=== PATIENT | female | born 1975 | race Caucasian/White ===

== ENCOUNTER 2017-02-02 01:00 | Emergency (ER) | payer MEDICAID ==
[2017-02-02] MEDS ORDERED: KETOROLAC 30 MG/ML VIAL IVP ONE (01:06)
--- NOTE | 2017-02-02 01:11 | Emergency Department Record ---
History of Present Illness - General Chief Complaint: Abdominal Pain Stated Complaint: ABDOMINAL PAIN Time Seen by Provider: 02/02/17 01:01 Source: Patient Mode of Arrival: Ambulatory Limitations: No limitations - History of Present Illness Initial Comments: 41 yo female presents to ED for worsening RLQ abdominal pain and difficulty urinating. Patient reports that she believes that she may have a UTI, but could now wait to see her PCP due to pain symptoms. Patient denies fevers, chills, nausea, vomiting, or change in stools. Patient denies previous abdominal surgery, and denies health problems at her baseline. MD Complaint: Abdominal pain Onset/Timin -: Days(s) Location: RLQ Radiation: None Migration to: No migration Severity: Severe Quality: Sharp, Stabbing Consistency: Constant Improves With: Nothing Worsens With: Nothing Associated Symptoms: Denies other symptoms - Related Data Patient : No Previous Rx's Medication Instructions Recorded Hydrocodone/Acetaminophen [[place] 1 tab PO Q6H PRN #10 tab 02/02/17 5mg/325mg] Tamsulosin HCl [Flomax] 0.4 mg PO DAILY #15 cap.er.24h 02/02/17 Allergies Allergy/AdvReac Type Severity Reaction Status Date / Time latex Allergy RASH Unverified 11/06/16 16:07 Review of Systems Constitutional: Denies: Chills, Fever, Malaise, Night sweats Eyes: Denies: Eye discharge, Eye pain ENT: Denies: Congestion, Ear pain, Epistaxis Respiratory: Denies: Cough, Dyspnea Cardiovascular: Denies: Chest pain, Dyspnea on exertion Endocrine: Denies: Fatigue, Heat or cold intolerance Gastrointestinal: Reports: Abdominal pain. Denies: Constipation, Nausea, Vomiting Genitourinary: Reports: Dysuria. Denies: Incontinence, Retention Musculoskeletal: Denies: Arthralgia, Back pain, Gout, Joint swelling Skin: Denies: Bruising, Change in color Neurological: Denies: Abnormal gait, Confusion, Headache, Seizure Psychiatric: Denies: Anxiety Hematological/Lymphatic: Denies: Anemia, Blood Clots Physical Exam - General General Appearance: Alert, Oriented x3, Cooperative, Moderate distress Limitations: No limitations - Head Head exam: Atraumatic, Normocephalic, Normal inspection Head exam detail: negative: Abrasion, Contusion, Carlin's sign, General tenderness, Hematoma, Laceration - Eye Eye exam: Normal appearance. negative: Conjunctival injection, Periorbital swelling, Periorbital tenderness, Scleral icterus - ENT Ear exam: negative: Auricular hematoma, Auricular trauma Nasal Exam: negative: Active bleeding, Discharge, Dried blood, Foreign body Mouth exam: negative: Drooling, Laceration, Muffled voice, Tongue elevation - Neck Neck exam: Normal inspection. negative: Meningismus, Tenderness - Respiratory Respiratory exam: Normal lung sounds bilaterally. negative: Rales, Respiratory distress, Rhonchi, Stridor - Cardiovascular Cardiovascular Exam: Regular rate, Normal rhythm, Normal heart sounds - GI/Abdominal GI/Abdominal exam: Soft, Tenderness, Other (Mild TTP to the RLQ, no rebound, guarding, or peritoneal signs on examination.). negative: Rebound, Rigid - Rectal Rectal exam: Deferred - exam: Deferred - Extremities Extremities exam: Normal inspection. negative: Calf tenderness, Pedal edema, Tenderness - Back Back exam: Denies: CVA tenderness (R), CVA tenderness (L) - Neurological Neurological exam: Alert, Normal gait, Oriented X3 - Psychiatric Psychiatric exam: Normal affect, Normal mood - Skin Skin exam: Normal color. negative: Abrasion Type of lesion: negative: abrasion Course - Reevaluation(s) Reevaluation #1: 02/02/17 01:37 Labs reviewed, WBC 17, labs are otherwise grossly unremarkable for an acute process. Patient has been unable to urinate, bladder scan demonstrates only 30 mL on examination. Patient is in CT currently. Reevaluation #2: 02/02/17 01:49 Patient is back from CT imaging, reports that her pain symptoms are greatly improved following Toradol. Patient will attempt to provide UA sample to exclude infection in 10-15 minutes. Reevaluation #3: 02/02/17 02:03 CT Abdomen and Pelvis: 3 mm distal obstructing calculus with moderate right hydronephrosis normal appendix. Reevaluation #4: 02/02/17 02:32 UA reviewed and appears negative for infection. Patient's pain symptoms appears controlled at this time, and the patient appears stable for outpatient follow-up with Dr. Corley in 1-3 days. Will initiate therapy with Flomax and [place] for her pain symptoms as well. Medical Decision Making - Lab Data Result diagrams: 02/02/17 01:12 02/02/17 01:12 Disposition Disposition: Discharge Clinical Impression: Kidney stone on right side Disposition: Home, Self-Care Condition: (2) Stable Instructions: Kidney Stones (ED) Additional Instructions: Return to ED if your symptoms worsen or if you have any concerns. Flomax and [place] as directed. Follow-up with Dr. Corley in 1-3 days as directed. Prescriptions: Hydrocodone/Acetaminophen [[place] 5mg/325mg] 1 tab PO Q6H PRN #10 tab PRN Reason: Pain - General Tamsulosin HCl [Flomax] 0.4 mg PO DAILY #15 cap.er.24h Referrals: ALVINO CORLEY M.D. [MEDICAL DOCTOR] - [facility] [Provider Group] Forms: Patient Portal Access Time of Disposition: 02:34 Quality - Quality Measures Quality Measures: N/A - Blood Pressure Screening Does Patient Have Any of the Following: No Blood Pressure Classification: Hypertensive Reading Systolic Measurement: 158 Diastolic Measurement: 127 Screening for High Blood Pressure: < First Hypertensive BP, F/U Documented > [ G8950] First Hypertensive Follow-up Interventions: Referral to alternative/primary care provider.
[2017-02-02] MEDS ORDERED: 0.9 % SODIUM CHLORIDE 1000ML 1,000 ML IV SCH (01:15)
[2017-02-02 01:17] LABS: BASO % 0.2 % (0-6); EOS % 1.1 % (0-6); GRAN % 51.5 % (47-80); HEMATOCRIT 45.6 % (35.0-47.0); HEMOGLOBIN 15.7 gm/dl (11.6-16.0); LYMPH % 38.6 % (16-45); MEAN CELL VOLUME 93.4 fl (81-97); MEAN CORPUSCULAR HEMOGLOBIN 32.2 pg (27-33); MEAN CORPUSCULAR HGB CONC 34.4 g/dl (32-36); MEAN PLATELET VOLUME 8.7 fl (7.4-10.4); MONO % 8.6 % (0-9); PLATELET COUNT 343 K/uL (130-400); RED BLOOD COUNT 4.88 M/uL (3.80-5.40); RED CELL DISTRIBUTION WIDTH 13.4 % (11.5-14.5)
[2017-02-02 01:28] LABS: BLOOD UREA NITROGEN 11 mg/dL (6-20); CREATININE 0.8 mg/dL (0.5-0.9); EST GLOMERULAR FILTRATION RATE > 60 mL/min; TOTAL PROTEIN 7.1 g/dL (6.6-8.7)
[2017-02-02 01:30] LABS: GLUCOSE,RANDOM 131 mg/dL (74-109)
[2017-02-02 01:33] LABS: ALB/GLOB RATIO 1.4 (1.1-1.8); ALBUMIN 4.1 g/dL (4.0-5.0); ALKALINE PHOSPHATASE 78 U/L (35-104); ALT/SGPT 10 U/L (<33); AST/SGOT 10 U/L (10.0-35.0); LIPASE 39 U/L (13-60)
[2017-02-02] MEDS ORDERED: ONDANSETRON HCL IV 4 MG/2 ML VIAL IVP ONE (01:53)
[2017-02-02] MEDS ORDERED: MORPHINE SULFATE 5 MG/ML PFS IVP ONE (01:53)
[2017-02-02 02:26] LABS: URINE APPEARANCE CLEAR; URINE BILIRUBIN NEGATIVE (NEGATIVE); URINE BLOOD SMALL (NEGATIVE); URINE COLOR YELLOW; URINE GLUCOSE (UA) NEGATIVE (NEGATIVE); URINE KETONE NEGATIVE (NEGATIVE); URINE LEUKOCYTE ESTERASE NEGATIVE (NEGATIVE); URINE NITRITE NEGATIVE (NEGATIVE); URINE PROTEIN NEGATIVE (NEGATIVE); URINE UROBILINOGEN 0.2 E.U./dL (0.20 - 1.00)
[2017-02-02 02:28] LABS: URINE WBC 0 - 2 (0-2/hpf)
[2017-02-02 02:29] LABS: URINE BACTERIA NONE SEEN
[2017-02-02] MEDS ORDERED: TAMSULOSIN HCL 0.4 MG CAP.ER.24H PO ONE (02:39)
[2017-02-02] MEDS ORDERED: HYDROCODONE/APAP 5/325MG TABLET PO ONE (02:39)
--- NOTE | 2017-02-02 14:29 | CT SCAN REPORT ---
EXAM: EMERGENCY CT OF THE ABDOMEN AND PELVIS WITH CONTRAST HISTORY: RIGHT LOWER QUADRANT PAIN AND FLANK PAIN FOR FOUR DAYS. TECHNIQUE: Axial CT scan of the abdomen and pelvis was obtained following the intravenous administration of 90 ml of Omnipaque 300 as the IV contrast. No oral contrast was utilized at the referring physician's request. A preliminary report was provided by [facility]. Comparison: CT of the abdomen and pelvis 03/01/10. FINDINGS: No calcified gallstones are seen within the gallbladder. No definite hepatic, splenic, adrenal, pancreatic, or right renal mass identified. There is a single low attenuation mass in the left kidney measuring about 1.4 cm in size. This was not well seen on the prior CT of 03/01/10 performed without IV contrast at that time, but has a CT density of 15 and is consistent with a renal cyst. There is no hydronephrosis or hydroureter on the left, but there is moderate hydronephrosis and mild hydroureter on the right with the dilated right ureter followed down into the pelvis where it becomes contiguous with a small calcification approximately 3 mm in size consistent with a distal right ureteral calculus a short distance from the right UVJ itself causing a component of obstruction. No actual bladder calculus evident. Mild diverticulosis seen in the left side of the colon fairly diffusely, but no diverticulitis evident. The appendix is visualized and appears of normal caliber with no appendicitis evident. No free intraperitoneal air or free intraperitoneal fluid evident. There is a very small periumbilical anterior abdominal wall hernia containing adipose tissue, but no bowel. There is probably a small, approximately 1.8 cm right ovarian cyst present. Somewhat anteverted uterus as before. IMPRESSION: 1. APPEARANCE CONSISTENT WITH AN APPROXIMATELY 3 MM DISTAL RIGHT URETERAL CALCULUS CAUSING A COMPONENT OF OBSTRUCTION ON THE RIGHT. THIS CALCULUS IS A SHORT DISTANCE FROM THE RIGHT UVJ ITSELF. 2. APPROXIMATELY 1.4 CM LEFT RENAL CYST. 3. PROBABLE 1.8 CM RIGHT OVARIAN CYST. 4. MODERATE DIVERTICULOSIS LEFT SIDE OF THE COLON, BUT NO DIVERTICULITIS EVIDENT. JOB NUMBER: [id number] MTDD
== END 2017-02-02 02:50 | disposition home or self-care (01) ==
LOC: ER 01:00
DX: N13.2 Hydronephrosis with renal and ureteral calculous obstruction (principal); R30.0 Dysuria
CPT/HCPCS: 99284 ×2; 96374; 96375; 83690; 85025; 80053; 81001; 81025; 74177; Q9967; J1885; J2405; J2270; J7030

== ENCOUNTER 2018-06-18 20:37 | Emergency (ER) | payer MEDICAID ==
--- NOTE | 2018-06-18 20:49 | Emergency Department Record ---
History of Present Illness - General Chief complaint: Pain Stated complaint: INJURY TO RT RIB Time Seen by Provider: 06/18/18 20:44 Source: Patient Mode of Arrival: Ambulatory Limitations: No limitations - History of Present Illness Initial comments: 42 yo female presents to ED for evaluation of right sided rib pain that began approximately 48 hours ago. Patient reports that she leaned over a futon 2 nights ago, felt a "pop" in the right ribs followed by the onset of her pain symptoms. Patient reports that she lifts "heavy boxes" at work the following day, symptoms worsened this morning. Patient reports taking Naprosyn for her pain symptoms without improvement. Patient denies fevers, chills, cough, calf swelling/pain, history of DVT. Patient denies abdominal pain, nausea, or vomiting as well. MD Complaint: Other Onset/Timin -: Days(s) Location: Right, Other (anterior-lateral ribs) -: Yes Arthralgia Quality: Aching Consistency: Intermittent Improves with: Nothing Worsens with: Other (Deep breaths, movement of the trunk) Associated Symptoms: Denies other symptoms - Related Data Home Medications Medication Instructions Recorded Confirmed Last Taken Fluoxetine HCl [Prozac] 10 mg PO DAILY 06/18/18 06/18/18 Unknown Allergies Allergy/AdvReac Type Severity Reaction Status Date / Time latex Allergy RASH Unverified 12/01/17 15:11 Review of Systems Constitutional: Denies: Chills, Fever, Malaise, Night sweats Eyes: Denies: Eye discharge, Eye pain, Photophobia ENT: Denies: Congestion, Ear pain, Epistaxis Respiratory: Denies: Cough, Dyspnea Cardiovascular: Reports: Chest pain. Denies: Dyspnea on exertion Endocrine: Denies: Fatigue, Heat or cold intolerance Gastrointestinal: Denies: Abdominal pain, Nausea, Vomiting Genitourinary: Denies: Incontinence, Retention Musculoskeletal: Denies: Arthralgia, Back pain Skin: Denies: Bruising, Change in color Neurological: Denies: Abnormal gait, Confusion, Headache, Seizure Psychiatric: Denies: Anxiety Hematological/Lymphatic: Denies: Anemia, Blood Clots Past Medical History - SOCIAL HISTORY Smoking Status: Current every day smoker Drug Use: None - RESPIRATORY Hx Respiratory Disorders: No - CARDIOVASCULAR Hx Cardio Disorders: No - NEURO Hx Neuro Disorders: No - GI Hx GI Disorders: No - Hx Genitourinary Disorders: Yes Hx Kidney Stones: Yes (hx) - ENDOCRINE Hx Endocrine Disorders: No - MUSCULOSKELETAL Hx Musculoskeletal Disorders: No - PSYCH Hx Psych Problems: No - HEMATOLOGY/ONCOLOGY Hx Hematology/Oncology Disorders: No Family Medical History Hx Cancer: Mother, Grandparents Hx Diabetes: Mother Hx Heart Disease: Grandparents Physical Exam - General General Appearance: Alert, Oriented x3, Cooperative, Mild distress Limitations: No limitations - Head Head exam: Atraumatic, Normocephalic, Normal inspection Head exam detail: negative: Abrasion, Contusion, Carlin's sign, General tenderness, Hematoma, Laceration - Eye Eye exam: Normal appearance. negative: Conjunctival injection, Periorbital swelling, Periorbital tenderness, Scleral icterus - ENT Ear exam: negative: Auricular hematoma, Auricular trauma Nasal Exam: negative: Active bleeding, Discharge, Dried blood, Foreign body Mouth exam: negative: Drooling, Laceration, Muffled voice, Tongue elevation - Neck Neck exam: Normal inspection. negative: Meningismus, Tenderness - Respiratory Respiratory exam: Normal lung sounds bilaterally, Chest wall tenderness (TTP right anterio-lateral lower ribs on examination). negative: Rales, Respiratory distress, Rhonchi, Stridor - Cardiovascular Cardiovascular Exam: Regular rate, Normal rhythm, Normal heart sounds - GI/Abdominal GI/Abdominal exam: Soft. negative: Rebound, Rigid, Tenderness - Rectal Rectal exam: Deferred - exam: Deferred - Extremities Extremities exam: Normal inspection. negative: Pedal edema, Tenderness - Back Back exam: Denies: CVA tenderness (R), CVA tenderness (L) - Neurological Neurological exam: Alert, Normal gait, Oriented X3 - Psychiatric Psychiatric exam: Normal affect, Normal mood - Skin Skin exam: Normal color. negative: Abrasion Type of lesion: negative: abrasion Course - Reevaluation(s) Reevaluation #1: 06/18/18 21:13 CXR: No acute process Patient was updated on her result, examination appears c/w chest wall strain vs. contusion. Patient appears stable for discharge with continued symptomatic treatment at home. Disposition Disposition: Discharge Clinical Impression: Acute chest wall pain Disposition: Home, Self-Care Condition: (2) Stable Instructions: Chest Wall Pain (ED) Additional Instructions: Return to ED if your symptoms worsen or if you have any concerns. (medication) as directed. Follow-up with your family doctor in 3-5 days as directed. Forms: Patient Portal Access Time of Disposition: 20:49 Quality - Quality Measures Quality Measures: N/A - Blood Pressure Screening Does Patient Have Any of the Following: No Blood Pressure Classification: Hypertensive Reading Systolic Measurement: 153 Diastolic Measurement: 91 Screening for High Blood Pressure: < First Hypertensive BP, F/U Documented > [ G8950] First Hypertensive Follow-up Interventions: Referral to alternative/primary care provider.
--- NOTE | 2018-06-22 07:04 | RADIOLOGY REPORT ---
EXAM: CHEST, TWO VIEWS HISTORY: BENT OVER A FUTON AND FELT A POP IN THE RIGHT RIB AREA LAST THURSDAY. RIGHT SIDED CHEST PAIN SINCE. TECHNIQUE: PA and lateral upright views of the chest were obtained. Comparison: Previous rib series dated 09/18/16. FINDINGS: There are low lung volumes. The heart, mediastinum, and pulmonary vasculature are normal. There is minor bibasilar atelectasis, left greater than right. There are no acute infiltrates or effusions. There is no pneumothorax. The visualized osseous structures appear intact. IMPRESSION: 1. MINOR BIBASILAR ATELECTASIS. 2. NO ACUTE INTRATHORACIC PATHOLOGY IDENTIFIED. JOB NUMBER: [id number] MTDD
== END 2018-06-18 21:22 | disposition home or self-care (01) ==
LOC: ER 20:37
DX: R07.89 Other chest pain (principal); F17.210 Nicotine dependence, cigarettes, uncomplicated
CPT/HCPCS: 71046; 99283

== ENCOUNTER 2018-07-31 14:14 | Emergency (ER) | payer MEDICAID ==
--- NOTE | 2018-07-31 15:13 | Emergency Department Record ---
History of Present Illness - General Chief Complaint: Neck Injury/Pain Stated Complaint: NECK PAIN /CHEST PRESSURE Time Seen by Provider: 07/31/18 15:11 Source: Patient Mode of Arrival: Ambulatory Limitations: No limitations - History of Present Illness Initial Comments: 42 yo female presents with constant left neck and left upper chest and left upper arm tightness since waking up Thursday morning. The areas are sore to touch, it is "tight" and painful to turn her neck or push on the chest. It does hurt to take a deep breath. No history of CAD, DVT or PE. NO fevers. No cough. No strong family members with CAD or early deaths. She is a smoker. MD Complaint: Neck pain, Other Onset/Timin -: Days(s) Place: Home Radiation: Chest, Left upper extremity Severity: Moderate Severity scale (1-10): 7 Quality: Aching, Other Consistency: Constant Improves With: None Worsens With: None Associated Symptoms: None Treatments Prior to Arrival: None - Related Data Previous Rx's Medication Instructions Recorded Cyclobenzaprine HCl [Flexeril] 10 mg PO TID #15 tablet 07/31/18 Allergies Allergy/AdvReac Type Severity Reaction Status Date / Time latex Allergy RASH Verified 07/31/18 15:05 Travel Screening - Travel/Exposure Within Last 30 Days Have you traveled within the last 30 days?: No Review of Systems Constitutional: Denies: Chills, Fever, Malaise, Weakness Eyes: Denies: Eye discharge ENT: Denies: Congestion, Throat pain Respiratory: Reports: Dyspnea. Denies: Cough Cardiovascular: Reports: Chest pain, Other (Hurts to breath). Denies: Dyspnea on exertion, Edema, Palpitations, Syncope Endocrine: Denies: Fatigue Gastrointestinal: Denies: Abdominal pain, Diarrhea, Nausea, Vomiting Genitourinary: Denies: Dysuria Musculoskeletal: Reports: Myalgia, Neck pain Skin: Denies: Bruising, Change in color, Rash Neurological: Denies: Headache, Numbness, Weakness Psychiatric: Denies: Anxiety Hematological/Lymphatic: Denies: Easy bleeding, Easy bruising Past Medical History - SOCIAL HISTORY Smoking Status: Current every day smoker Alcohol Use: None Drug Use: None - RESPIRATORY Hx Respiratory Disorders: No - CARDIOVASCULAR Hx Cardio Disorders: Yes Comment:: high cholesterol - NEURO Hx Neuro Disorders: No - GI Hx GI Disorders: No - Hx Genitourinary Disorders: Yes Hx Kidney Stones: Yes (hx) - ENDOCRINE Hx Endocrine Disorders: No - MUSCULOSKELETAL Hx Musculoskeletal Disorders: No - PSYCH Hx Psych Problems: Yes Hx Anxiety: Yes Hx Depression: Yes - HEMATOLOGY/ONCOLOGY Hx Hematology/Oncology Disorders: No Family Medical History Any Significant Family History?: Yes Hx Cancer: Mother, Grandparents Hx Diabetes: Mother Hx Heart Disease: Grandparents Physical Exam - General General Appearance: Alert, Oriented x3, Cooperative, No acute distress Limitations: No limitations - Head Head exam: Atraumatic, Normal inspection - Eye Eye exam: Normal appearance, PERRL. negative: Conjunctival injection, Scleral icterus - ENT ENT exam: Normal exam, Mucous membranes moist Ear exam: Normal external inspection Nasal Exam: Normal inspection Mouth exam: Normal external inspection - Neck Neck exam: Normal inspection, Full ROM, Tenderness, Other (Tender left side of the neck, pain with moving, turning) - Respiratory Respiratory exam: Normal lung sounds bilaterally, Chest wall tenderness (tender left upper chest). negative: Respiratory distress - Cardiovascular Cardiovascular Exam: Regular rate, Normal rhythm, Normal heart sounds. negative: Diastolic murmur, Systolic murmur Peripheral Pulses: 2+: Radial (R), Radial (L) - GI/Abdominal GI/Abdominal exam: Soft. negative: Tenderness - Rectal Rectal exam: Deferred - exam: Deferred - Extremities Extremities exam: Normal inspection, Full ROM. negative: Pedal edema, Tenderness - Back Back exam: Denies: CVA tenderness (R), CVA tenderness (L) - Neurological Neurological exam: Alert, Oriented X3 - Psychiatric Psychiatric exam: Normal affect, Normal mood - Skin Skin exam: Dry, Intact, Normal color, Warm Course Vital Signs 07/31/18 15:01 Temperature 98.5 F Pulse Rate 78 Respiratory 20 Rate Blood Pressure 161/87 Pulse Ox 99 - Reevaluation(s) Reevaluation #1: 07/31/18 15:12 EKG #1: 15:01 Rate: 79 Rhythm: sinus [place]: normal Intervals: normal ST segments: normal Prior: 07/31/18 16:50 The labs results were reviewed There are no acute significant abnormalities of the CBC There are no acute significant abnormalities of the CMP The troponin is normal The D-dimer is normal The CXR is normal The patient has very atypical pain that is reproducible on palpation and with movement It is constant for days and with normal testing not likely cardiac in nature DC home to follow up with her PCP 07/31/18 18:30 Medical Decision Making - Lab Data Result diagrams: 07/31/18 15:10 07/31/18 15:10 Disposition Disposition: Discharge Clinical Impression: Acute chest wall pain Disposition: Home, Self-Care Condition: (1) Good Instructions: Chest Wall Pain (ED) Additional Instructions: Call your doctor for the next available follow up appointment Review this ER visit and the tests performed with your family doctor Return to the ER for a recheck if worse, any new concerns or questions Take the prescriptions provided as directed Prescriptions: Cyclobenzaprine HCl [Flexeril] 10 mg PO TID #15 tablet Forms: Patient Portal Access Time of Disposition: 16:53 Quality - Quality Measures Quality Measures: N/A - Blood Pressure Screening Does Patient Have Any of the Following: No Blood Pressure Classification: Hypertensive Reading Systolic Measurement: 153 Diastolic Measurement: 94 Screening for High Blood Pressure: < Pre-Hypertensive BP, F/U Documented > [G8950] Pre-Hypertensive Follow-up Interventions: Referral to alternative/primary care provider.
[2018-07-31 15:28] LABS: ABSOLUTE NEUTROPHIL COUNT 4.94; BASO % 0.2 % (0-6); GRAN % 56.6 % (47-80); HEMATOCRIT 46.7 % (35.0-47.0); HEMOGLOBIN 15.4 gm/dl (11.6-16.0); MEAN CELL VOLUME 93.4 fl (81-97); MEAN CORPUSCULAR HEMOGLOBIN 30.8 pg (27-33); MEAN PLATELET VOLUME 8.8 fl (7.4-10.4); MONO % 6.2 % (0-9); PLATELET COUNT 274 K/uL (130-400); RED CELL DISTRIBUTION WIDTH 13.3 % (11.5-14.5); WHITE BLOOD COUNT W/O DIFF 8.7 K/uL (4.2-12.2)
[2018-07-31 15:38] LABS: BLOOD UREA NITROGEN 6 mg/dL (6-20); CREATININE 0.6 mg/dL (0.5-0.9); EST GLOMERULAR FILTRATION RATE > 60 mL/min
[2018-07-31 15:40] LABS: GLUCOSE,RANDOM 93 mg/dL (74-109)
[2018-07-31 15:43] LABS: ALB/GLOB RATIO 1.3 (1.1-1.8); ALKALINE PHOSPHATASE 90 U/L (35-104); ALT/SGPT 26 U/L (<33); AST/SGOT 19 U/L (10.0-35.0)
--- NOTE | 2018-08-03 06:30 | RADIOLOGY REPORT ---
EXAM: CHEST, TWO VIEWS HISTORY: NECK AND CHEST PAIN FOR ONE DAY. TECHNIQUE: Two views of the chest were obtained. Comparison: 06/18/18. FINDINGS: The cardiomediastinal silhouette is unremarkable. The lungs and pleural spaces are clear. IMPRESSION: NO ACUTE CARDIOPULMONARY ABNORMALITY. JOB NUMBER: [id number] MTDD
== END 2018-07-31 17:09 | disposition home or self-care (01) ==
LOC: ER 14:14
DX: R07.89 Other chest pain (principal); M54.2 Cervicalgia; F17.210 Nicotine dependence, cigarettes, uncomplicated
CPT/HCPCS: 71046; 80053; 84484; 85025; 85379; 93005; 93010; 99284